=== PATIENT | male | born 1945 | race Caucasian/White ===

== ENCOUNTER → 2024-08-30 | Outpatient (CLI) | payer MEDICARE ==
[2024-08-30 16:32] LABS: Basophils # (A) 0.03 X 10*3/uL (0.00-0.10); Basophils % (A) 0.4 %; Eosinophils # (A) 0.09 X 10*3/uL (0.04-0.35); Eosinophils % (A) 1.2 %; HCT 45.5 % (39.6-50.0); HGB 15.5 g/dL (13.0-17.0); Lymphocytes # (A) 1.47 X 10*3/uL (0.90-5.00); Lymphocytes % (A) 19.2 %; MCH 31.9 pg (27.0-32.0); MCHC 34.1 g/dL (32.0-37.0); MCV 93.6 FL (80.0-97.0); Monocytes # (A) 0.87 X 10*3/uL (0.20-1.00); Monocytes % (A) 11.4 %; NRBC Per 100 WBC 0 X 10*3/uL (0.00-0.01); Neutrophils # (A) 5.18 X 10*3/uL (1.80-7.70); Neutrophils % (A) 67.5 %; Platelet Count 239 X 10*3/uL (140-440); RBC 4.86 X 10*6/uL (4.40-5.60); RDW 12.8 % (11.5-14.5); WBC 7.66 X 10*3/uL (4.50-10.00)
[2024-08-30 16:57] LABS: Erythrocyte Sedimentation Rate 36 mm/Hr (0-20)
[2024-08-30 17:29] LABS: ALT 21 U/L (10-49); AST 21 U/L (14-35); Albumin 4.3 g/dL (3.8-4.9); Albumin/Globulin Ratio 1.65 Ratio (1.60-3.17); Alkaline Phosphatase 74 U/L (41-126); BUN/Creat Ratio 18.69 Ratio (12.00-20.00); Blood Urea Nitrogen 24.3 mg/dL (9.0-27.0); Calcium 9.5 mg/dL (8.7-10.3); Carbon Dioxide 21.2 mmol/L (21.6-31.8); Chloride 98 mmol/L (96-109); Globulin 2.6 g/dL (1.6-3.3); Glucose 98 mg/dL (70-110); Potassium 4.6 mmol/L (3.5-5.5); Rheumatoid Factor, Qnt 84 IU/mL (0-15); Sodium 136 mmol/L (135-145); Total Bilirubin 0.7 mg/dL (0.3-1.2); Total Protein 6.9 g/dL (6.2-8.2)
[2024-08-30 18:06] LABS: HIV 2 AB Non-Reactive (Non-Reactive); HIV AB P24 Non-Reactive (Non-Reactive); HIV P24 AG Non-Reactive (Non-Reactive)
[2024-08-30 18:41] LABS: Thyroid Peroxidase Antibodies <9.0 U/mL (0.0-33.0)
[2024-08-30 22:19] LABS: Anti-DNA, DS unit <1.0 IU/mL; DNA Double-Stranded Negative (Negative)
[2024-08-31 01:05] LABS: Cyclic Citrull Pep IgG Unit 11.6 U/mL (<=3.9); Cyclic Citrullinated Pep IgG Positive (Negative)
[2024-08-31 06:27] LABS: Toxoplasma Antibody (IgG) <3.0 IU/mL (<7.2); Toxoplasma Antibody (IgM) <3.0 AU/mL (<8.0)
[2024-08-31 11:05] LABS: Angiotensin-1 Converting Enz. <3 U/L (8-52)
[2024-08-31 13:51] LABS: C-ANCA <1:20 Titer (<1:20)
[2024-08-31 18:11] LABS: Thyroid Stim Immun Quant <0.10 IU/L (<0.10)
== END | disposition home or self-care (01) ==
LOC: LABWHC1 12:00
DX: H15.091 Other scleritis, right eye (principal)
CPT/HCPCS: 36415; 80053; 82164; 84436; 84443; 84445; 84480; 85025; 85549; 85652; 86038; 86140; 86200; 86225; 86255; 86376; 86431; 86480; 86618; 86777; 86778; 86780; 86800; 87390